=== PATIENT | female | born 1985 | race Caucasian/White ===

== ENCOUNTER 2017-01-08 05:43 | Inpatient (IN) | payer OTHER ==
--- NOTE | 2017-01-08 09:29 | ED NURSING NOTES ---
Clinical Report - Nurses Located Within [facility] [address] [place] [address] 01/08/2017 5:44 [id number] Triage time 05:48 Jan 08 2017. Acuity: LEVEL 3. --05:52 Marely Mendoza R.N. 05:48 01/08/17. BP: 106/52. HR: 91. RR: 18. O2 saturation: 99%. Temp: 99.7 F. Pain level now: 05/08. --05:52 Marely Mendoza R.N. JESUS COMA SCORE: [place] Coma Scale: 15- eyes open spontaneously (4); best verbal response- oriented x 4 (5); best motor response- obeys commands (6). --05:52 Marely Mendoza R.N. Chief Complaint: (Shaking, feels off. 5 day post , s/p vaginal delivery of twins. noticed increased vag bleeding with associated back pain and pain in right posterior chest). late entry - 05:52 01/08/17. --08:57 Terry Plunkett R.N. Weight: 74.3 kg. Height/Length: 61 inches. BMI: 31. --05:48 Marely Mendoza R.N. Medications Vitamins. --05:49 Marely Mendoza R.N. Medication/allergy information source: the patient. --05:52 Marely Mendoza R.N. Allergies No Known Drug Allergy. --05:49 Marely Mendoza R.N. History Arrived by private vehicle. Historian: patient. Accompanied by family. This started today. ( Shaking, feels off. 5 day post , s/p vaginal delivery of twins. noticed increased vag bleeding with associated back pain and pain in right posterior chest). She has had fever and difficulty breathing. Reports muscle aches. No weakness, cough or skin rash. 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 PAST MEDICAL HX: Denies current : 5 days post . SOCIAL HX: Never smoker. No alcohol use or drug use. No infectious disease exposure. ABUSE ASSESSMENT: No report of abuse. SELF HARM ASSESSMENT: A self harm assessment was performed. The patient answered "no" to the question "Have you recently felt down, depressed, or hopeless?", "Have you noticed less interest or pleasure in doing things?", "Do you have thoughts of harming or killing yourself?", "Are you here because you tried to hurt yourself?", "Have you ever tried to hurt yourself before today?", "Have you recently had thoughts about harming or killing others?" and "Do you have any dangerous items in your possession?". NUTRITIONAL RISK ASSESSMENT: The nutritional risk assessment revealed no deficiencies. FUNCTIONAL ASSESSMENT: Functional assessment: no impairments noted. LEARNING NEEDS ASSESSMENT: The learning needs assessment revealed no barriers. SKIN INTEGRITY ASSESSMENT: Skin integrity risk assessment completed. No skin integrity risk identified. --05:52 Marely Mendoza R.N. PROBLEMS: Anemia. --05:50 Marely Mendoza R.N. ADDITIONAL SURGERIES: Breast Reductiion. Dilatation & Curettage. --05:50 Marely Mendoza R.N. PHYSICAL ASSESSMENT 05:53 01/08/17. GENERAL / NEURO / PSYCH: Alert. Oriented X 4. HEENT: Pupils equal, round and reactive to light. Mucous membranes are pink. RESPIRATORY: Respirations not labored. CVS: Pulses within normal limits. SKIN: Skin intact. Skin is warm and dry. Normal skin turgor. --05:53 Marely Mendoza R.N. 06:00 01/08/17. GI / : ( post vaginal bleeding). Abdominal distention (soft, post ). No tenderness. --06:00 Marely Mendoza R.N. NURSING PROGRESS NOTES 05:54 01/08/17. The initial plan of care for this patient includes an assessment with efforts to address the patient's anxiety; the presence of pain; impairment of the gastrointestinal and genitourinary system; hydration needs. This plan of care was discussed with the patient and spouse. Patient gowned. Reassurance given. Patient identifiers checked. Call light placed in reach. Side rails up x 2. Bed placed in lowest position. Brakes of bed on. Patient ready for evaluation. --05:54 Marely Mendoza R.N. 05:57 01/08/2017 Site #1 started via IV in the left antecubital space with an 20g angiocath, with aseptic technique and good blood return; one attempt. Blood drawn: rainbow set. Labeled in the presence of the patient and sent to the lab. Saline lock flushed with 10 mL saline. --05:57 Marely Mendoza R.N. 06:07 01/08/2017 Site #1 relocated to the right with an 20g angiocath, with aseptic technique and good blood return; one attempt. Saline lock flushed with 10 mL saline (correction to previous entry). --06:07 Marely Mendoza R.N. 06:40 01/08/2017 Started bag #1 1000 mL IV Fluids IV NS (Saline); at 2000 mL/hr over 30 minute(s) via site #1. Allergies verified and confirmed 5 rights. IV patency established. IV site checked: no pain, redness, or swelling. IV flushed thoroughly pre- and post-medication administration. --06:46 Marely Mendoza R.N. 06:41 01/08/2017 Started 2 gm of Rocephin (CefTRIAXone Sodium) IVPB in bag #1 50 mL; at 100 mL/hr over 30 minute(s) via site #1; Allergies verified and confirmed 5 rights. IV patency established. IV site checked: no pain, redness, or swelling. IV flushed thoroughly pre- and post-medication administration. --06:50 Marely Mendoza R.N. 07:09 01/08/17. Care transferred and report given (to EDWARD Stewart). --07:09 Marely Mendoza R.N. 07:31 01/08/2017 Zofran (Ondansetron HCl) IVP 4 mg given over 2 minute(s) via site #1. Allergies verified and confirmed 5 rights. --07:36 Margaret Montana R.N. 07:33 01/08/2017 Dilaudid (HYDROmorphone HCl PF) IVP 0.5 mg given over 1 minute(s) via site #1. Allergies verified, confirmed 5 rights and sedative warning given to the patient. --07:36 Margaret Montana R.N. 07:35 01/08/17. BP: 123/66. HR: 74. RR: 19. O2 saturation: 98%. Temp: 101.9 F (oral). Pain level now: 06/07. --07:41 Margaret Montana R.N. 08:07 01/08/17. BP: 123/66. HR: 73. RR: 16. O2 saturation: 97%. Temp: 102.5 F. Pain level now: 0. --08:10 Terry Plunkett R.N. 08:10 01/08/17. Pulse oximeter and NIBP monitor placed on patient; monitor alarms on. Head of bed elevated. Reassurance given. Call light placed in reach. Side rails up x 1. Bed placed in lowest position. Brakes of bed on. --08:10 Terry Plunkett R.N. 08:18 01/08/2017 Tylenol (Acetaminophen) PO Tablets 975 mg given. Allergies verified and confirmed 5 rights. --08:18 Terry Plunkett R.N. 08:54 01/08/2017 IV Fluids IV NS Bag Change: bag #1. Total amount infused: 1000. STARTED bag #2 (1000 mL) at 1000 mL/hr. Confirmed 5 rights. IV patency established. IV site checked: no pain, redness, or swelling. IV flushed thoroughly. --08:54 Terry Plunkett R.N. 08:55 01/08/17. ( Pt took 240ml po fluids.). --08:55 Terry Plunkett R.N. 09:28 01/08/17. Temp: 101.3 F (oral). --09:30 Terry Plunkett R.N. 09:20. Head of bed elevated. Reassurance given. Reassessment after fluids administered and medication administered. Overall patient status is improved. Call light placed in reach. Side rails up x 1. Bed placed in lowest position. Brakes of bed on. ( Pt up to BR, voiding without difficulty. Pt requesting food, breakfast tray ordered. IVF infusing.). Patient waiting for (Eval by OB doctor). --09:30 Terry Plunkett R.N. 09:20 01/08/2017 Tylenol PO Response: no adverse reaction symptoms have improved. ED physician notified (Temp down to 101.3). --09:31 Terry Plunkett R.N. 10:13 01/08/17. BP: 100/51. HR: 70. RR: 16. O2 saturation: 97% on room air. Temp: 99.2 F (oral). Pain level now: 0/10. --10:14 Terry Plunkett R.N. 10:00 01/08/2017 IV Fluids IV NS Discontinued: bag #2 completed. Total amount infused: 1000 mL. IV patency established. IV site checked: no pain, redness, or swelling. IV flushed thoroughly. --10:16 Terry Plunkett R.N. 10:14 01/08/17. ( Pt ate her breakfast. No c/o now.). --10:14 Terry Plunkett R.N. DISPOSITION / DISCHARGE 10:13 01/08/2017 Site #[address] upon admission; patent, no pain and no signs of infection or infiltration. Flushed with 10 mL saline; flushes easily. --10:43 Terry Plunkett R.N. 10:41 01/08/17. Departure time: 1030. Condition at departure: improved and stable. Disposition: observation (OB). Transported via stretcher by transport team with IV. --10:44 Terry Plunkett R.N. 10:13 01/08/17. BP: 100/51. HR: 70. RR: 16. O2 saturation: 97% on room air. Temp: 99.5 F (oral). Pain level now: 0/10. --10:44 Terry Plunkett R.N. 10:49 01/08/17. Report was given via a phone call. Report included patient's care, treatment, medications, reviewed medication reconcilliation, and condition (including any recent changes or anticipated changes). All questions were answered. Report was acknowledged. (Emma Bowman RN). --10:49 Terry Plunkett R.N. Locked/Released at 01/21/2017 8:58 by Terry Plnukett R.N.
--- NOTE | 2017-01-08 09:29 | ED CLINICAL REPORT ---
Clinical Report - Physicians/Mid Levels [facility] [address] [place] [address] 01/08/2017 5:44 Patient: VIRI JUAREZ Time Seen: 06:07 Jan 08 2017. Arrived- By private vehicle. Historian- patient. CPT: ER phys charges level 5 (#[id number]). HISTORY OF PRESENT ILLNESS Chief Complaint: FEVER and CHILLS Post- 5 days and does not feel well. This started about 3 days [employer]ARLAND [employer] and is still present (worse today when woke up with chills and rigors.). At its maximum, severity described as moderate. When seen in the E.D., severity described as moderate. The patient has had weakness. Similar symptoms previously: None. Recent medical care: The patient was seen recently at another facility and hospitalized. ( Delivered twins 5 days ago). REVIEW OF SYSTEMS The patient has had fever, mild abdominal pain. The pain is described as located in the suprapubic region, chills and weakness. No sore throat or throat, sinus drainage, nasal congestion or cough. No difficulty breathing, chest pain, nausea, vomiting or diarrhea. No black stools, bloody stools, difficulty with urination, skin rash or blackouts. No easy bruising. The patient has had moderate back pain (right flank). No difficulty with ambulation. All systems otherwise negative, except as recorded above. PAST HISTORY Vaginal delivery of twins 5 days ago. Anemia. Breast Reductiion. Dilatation & Curettage. Medications: Vitamins. Allergies: No Known Drug Allergy. SOCIAL HISTORY Never smoker. No alcohol use or drug use. ADDITIONAL NOTES The nursing notes have been reviewed. PHYSICAL EXAM Vital Signs: 01/08/2017 05:48 BP: 106/52. HR: 91. RR: 18. O2 saturation: 99%. Temp: 99.7 F. Pain level now: 10. Appearance: Alert. Patient in moderate distress. Eyes: Eyes normal inspection. ENT: Dry mucous membranes present. Pharynx normal. Neck: Normal inspection. No meningeal signs. CVS: Normal heart rate and rhythm. Heart sounds normal. Pulses normal. Respiratory: No respiratory distress. Breath sounds normal. Chest nontender. Abdomen: Soft. Mild tenderness in the lower abdomen. (enlarged uterus.). Back: Normal inspection. Moderate CVA tenderness on the right. Skin: Skin warm. Normal skin color. No rash. Extremities: Extremities exhibit normal ROM. No lower extremity edema. Neuro: Oriented X 3. No motor deficit. No sensory deficit. LABS, X-RAYS, AND EKG Laboratory Tests: UA-Culture if indicated: (BENITO: 01/08/2017 06:37) ( MsgRcvd 01/08/2017 08:36) Final results Test Result Flag Units (Reference) URINE COLOR YELLOW URINE APPEARANCE CLEAR URINE GLUCOSE NEGATIVE (NEGATIVE) URINE BILIRUBIN NEGATIVE (NEGATIVE) URINE KETONE NEGATIVE (NEGATIVE) URINE SPECIFIC GRAVITY 1.015 (1.010-1.030) URINE PH 7.0 (5.0-8.0) URINE PROTEIN NEGATIVE (NEGATIVE) URINE UROBILINOGEN 0.2 EU/dL (0.2-1.0) URINE NITRITE NEGATIVE (NEGATIVE) URINE BLOOD 3+ (NEGATIVE) URINE LEUK ESTERASE POSITIVE (NEGATIVE) URINE RBC 10-25 rbc/hpf (0-1) URINE WBC 10-15 wbc/hpf (0-1) URINE EPITHELIAL CELLS 1-3 EPI/hpf (0-5) URINE BACTERIA MODERATE (2+ TO 3+) (NONE SEEN) URINE COMMENT CULTURE INDICATED URINE CULTURES ARE SET-UP BASED ON THE FOLLOWING CRITERIA:POSITIVE NITRITEPOSITIVE LEUKOCYTE ESTERASEGREATER THAN 10 WHITE BLOOD CELLSMODERATE (2+) OR GREATER BACTERIA CBC w Diff: (BENITO: 01/08/2017 05:55) ( MsgRcvd 01/08/2017 06:11) Final results Test Result Flag Units (Reference) WHITE BLOOD COUNT 11.2 K/uL (4.5-11.5) RED BLOOD COUNT 4.23 M/uL (4.00-5.20) HEMOGLOBIN 13.5 gm/dL (12.0-16.0) HEMATOCRIT 40.5 % (36.0-46.0) MEAN CELL VOLUME 96 fL (80-100) MEAN CORPUSCULAR HGB 32 pg (26-34) MEAN CORPUSCULAR HGB CONC 33 g/dL (31-37) RED CELL DISTRIBUTION WIDTH 14.9 H % (11.6-14.8) PLATELET COUNT 290 K/uL (150-400) NEUTROPHIL % 92.5 H % (50-75) LYMPH % 6.7 L % (25-40) MONO % 0.2 L % (3-14) EOSINOPHIL % 0.3 % (0-4) BASOPHIL % 0.3 % (0-2) PT with INR: (BENITO: 01/08/2017 05:55) ( [facility] [place] 01/08/2017 06:22) Final results Test Result Flag Units (Reference) INR 0.9 (0.8-1.2) Low Intensity Therapy: INR 1.5-2.0 PT range 18.5-23.1Mod.Intensity Therapy: INR 2.0-3.0 PT range 23.1-31.5High Intensity Therapy: INR 2.5-3.5 PT range 27.4-35.5High Intensity Therapy 2: INR 3.0-4.0 PT range 31.5-39.3 D-DIMER QUANTITATIVE 1.88 H ug/mLFEU (0.27-0.52) The primary value of this quantitative assay relates toits negative predictive value (i.e. exclusion) of pulmonaryembolism/deep vein thrombosis/DIC.Elevated levels of d-dimer may also occur with:, age, cancer, inflammation, liver disease,post-op, infection, hematoma, coronary disease, peripheralarteriopathy, bleeding disorders and thrombolytic treatment.Results should be correlated with other clinical andradiological data.Testing Methodology: Latex Immunoassay Lactate, Serum: (BENITO: 01/08/2017 07:10) ( [facility] [place] 01/08/2017 07:49) Final results Test Result Flag Units (Reference) LACTIC ACID 1.0 mmol/L (0.4-2.0) [id number]: (BENITO: 01/08/2017 05:55) ( [facility] [place] 01/08/2017 07:25) Final results Test Result Flag Units (Reference) PROCALCITONIN <0.5 ng/mL (0-0.5) PCT Concentration: Interpretation : Risk/option for action PCT <=0.5 ng/mL : Systemic : Low risk forinfection(sepsis): progression to severeis not likely. : systemic infection.Local bacterial : CAUTION-PCT levelsinfection is : below 0.5 ng/mL do notpossible. : exclude an infection,because localizedinfections (withoutsystemic signs) may beassociated with suchlow levels. If PCT ismeasured very earlyafter a bacterialchallenge (usually <6hours), these valuesmay still be low. Inthis case PCT shouldbe re-assessed 6-24hours later. PCT >0.5 and : Systemic infection: Moderate risk for<= 2 ng/mL : (sepsis) is : progression to severepossible, but : systemic infection.other conditions : The patient should beare known to : closely monitoredelevate PCT. : both clinically andby re-assessing PCTwithin 6-24 hours. PCT > 2 ng/mL : Systemic infection: High risk for(sepsis) is likely: progression to severeunless other : systemic infection.causes are known. : PCT >= 10 ng/mL : Important systemic: High likelihood ofinflammatory : severe sepsis orresponse, almost : septic shock.exclusively due to:severe bacterial :sepsis or septic :shock. : CMP: (BENITO: 01/08/2017 05:55) ( MsgRcvd 01/08/2017 06:25) Final results Test Result Flag Units (Reference) GLUCOSE 85 mg/dL (70-110) BUN 13 mg/dL (7-18) CREATININE 0.7 mg/dL (0.6-1.3) Estimated GFR >60 mL/min Estimated GFR- >60 mL/min Note: Persistent reduction over 3 months in eGFR<60 mL/min/1.73 m2 defines CKD. Patients with eGFR values>=60 mL/min/1.73 m2 may also have CKD if evidence ofpersistent proteinuria. Additional information may be foundat www.kidney.org. SODIUM 141 mmol/L (136-145) POTASSIUM 4.1 mmol/L (3.5-5.1) CHLORIDE 106 mmol/L (98-107) CARBON DIOXIDE 23 mmol/L (21-32) CALCIUM 8.9 mg/dL (8.5-10.1) TOTAL PROTEIN 6.7 g/dL (6.4-8.2) ALBUMIN 2.6 L g/dL (3.3-5.0) BILIRUBIN, TOTAL 0.5 mg/dL (0.0-1.0) ALKALINE PHOSPHATASE 187 H U/L (46-116) AST (SGOT) 77 H U/L (15-37) ALT (SGPT) 71 U/L (12-78) . PROGRESS AND PROCEDURES Course of Care: IV NS Dilaudid 0.5 mg IV Zofran 4 mg IV BC times 1 Rocephin 2g IV Symptoms better. Discussed case with on-call health care provider, (Victor Manuel). Reviewed test results. Agreed upon treatment plan. Health care provider will see patient in ED. Patient/family counseled. Disposition orders written. Disposition: Admitted to Acute Care. CLINICAL IMPRESSION Acute pyelonephritis Rule out endometritis. (Electronically signed by Segundo Leger MD 01/09/2017 9:49)
--- NOTE | 2017-01-08 09:29 | ED CLINICAL REPORT ---
Clinical Report - Physicians/Mid Levels [facility] [address] [place] [address] 01/08/2017 5:44 Patient: VIRI JUAREZ Time Seen: 06:07 Jan 08 2017. Arrived- By private vehicle. Historian- patient. CPT: ER phys charges level 5 (#[id number]). HISTORY OF PRESENT ILLNESS Chief Complaint: FEVER and CHILLS Post- 5 days and does not feel well. 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 At its maximum, severity described as moderate. When seen in the E.D., severity described as moderate. The patient has had weakness. Similar symptoms previously: None. Recent medical care: The patient was seen recently at another facility and hospitalized. ( Delivered twins 5 days ago). REVIEW OF SYSTEMS The patient has had fever, mild abdominal pain. The pain is described as located in the suprapubic region, chills and weakness. No sore throat or throat, sinus drainage, nasal congestion or cough. No difficulty breathing, chest pain, nausea, vomiting or diarrhea. No black stools, bloody stools, difficulty with urination, skin rash or blackouts. No easy bruising. The patient has had moderate back pain (right flank). No difficulty with ambulation. All systems otherwise negative, except as recorded above. PAST HISTORY Vaginal delivery of twins 5 days ago. Anemia. Breast Reductiion. Dilatation & Curettage. Medications: Vitamins. Allergies: No Known Drug Allergy. SOCIAL HISTORY Never smoker. No alcohol use or drug use. ADDITIONAL NOTES The nursing notes have been reviewed. PHYSICAL EXAM Vital Signs: 01/08/2017 05:48 BP: 106/52. HR: 91. RR: 18. O2 saturation: 99%. Temp: 99.7 F. Pain level now: 10. Appearance: Alert. Patient in moderate distress. Eyes: Eyes normal inspection. ENT: Dry mucous membranes present. Pharynx normal. Neck: Normal inspection. No meningeal signs. CVS: Normal heart rate and rhythm. Heart sounds normal. Pulses normal. Respiratory: No respiratory distress. Breath sounds normal. Chest nontender. Abdomen: Soft. Mild tenderness in the lower abdomen. (enlarged uterus.). Back: Normal inspection. Moderate CVA tenderness on the right. Skin: Skin warm. Normal skin color. No rash. Extremities: Extremities exhibit normal ROM. No lower extremity edema. Neuro: Oriented X 3. No motor deficit. No sensory deficit. LABS, X-RAYS, AND EKG Laboratory Tests: UA-Culture if indicated: (BENITO: 01/08/2017 06:37) ( MsgRcvd 01/08/2017 08:36) Final results Test Result Flag Units (Reference) URINE COLOR YELLOW URINE APPEARANCE CLEAR URINE GLUCOSE NEGATIVE (NEGATIVE) URINE BILIRUBIN NEGATIVE (NEGATIVE) URINE KETONE NEGATIVE (NEGATIVE) URINE SPECIFIC GRAVITY 1.015 (1.010-1.030) URINE PH 7.0 (5.0-8.0) URINE PROTEIN NEGATIVE (NEGATIVE) URINE UROBILINOGEN 0.2 EU/dL (0.2-1.0) URINE NITRITE NEGATIVE (NEGATIVE) URINE BLOOD 3+ (NEGATIVE) URINE LEUK ESTERASE POSITIVE (NEGATIVE) URINE RBC 10-25 rbc/hpf (0-1) URINE WBC 10-15 wbc/hpf (0-1) URINE EPITHELIAL CELLS 1-3 EPI/hpf (0-5) URINE BACTERIA MODERATE (2+ TO 3+) (NONE SEEN) URINE COMMENT CULTURE INDICATED URINE CULTURES ARE SET-UP BASED ON THE FOLLOWING CRITERIA:POSITIVE NITRITEPOSITIVE LEUKOCYTE ESTERASEGREATER THAN 10 WHITE BLOOD CELLSMODERATE (2+) OR GREATER BACTERIA CBC w Diff: (BENITO: 01/08/2017 05:55) ( MsgRcvd 01/08/2017 06:11) Final results Test Result Flag Units (Reference) WHITE BLOOD COUNT 11.2 K/uL (4.5-11.5) RED BLOOD COUNT 4.23 M/uL (4.00-5.20) HEMOGLOBIN 13.5 gm/dL (12.0-16.0) HEMATOCRIT 40.5 % (36.0-46.0) MEAN CELL VOLUME 96 fL (80-100) MEAN CORPUSCULAR HGB 32 pg (26-34) MEAN CORPUSCULAR HGB CONC 33 g/dL (31-37) RED CELL DISTRIBUTION WIDTH 14.9 H % (11.6-14.8) PLATELET COUNT 290 K/uL (150-400) NEUTROPHIL % 92.5 H % (50-75) LYMPH % 6.7 L % (25-40) MONO % 0.2 L % (3-14) EOSINOPHIL % 0.3 % (0-4) BASOPHIL % 0.3 % (0-2) PT with INR: (BENITO: 01/08/2017 05:55) ( [facility] [place] 01/08/2017 06:22) Final results Test Result Flag Units (Reference) INR 0.9 (0.8-1.2) Low Intensity Therapy: INR 1.5-2.0 PT range 18.5-23.1Mod.Intensity Therapy: INR 2.0-3.0 PT range 23.1-31.5High Intensity Therapy: INR 2.5-3.5 PT range 27.4-35.5High Intensity Therapy 2: INR 3.0-4.0 PT range 31.5-39.3 D-DIMER QUANTITATIVE 1.88 H ug/mLFEU (0.27-0.52) The primary value of this quantitative assay relates toits negative predictive value (i.e. exclusion) of pulmonaryembolism/deep vein thrombosis/DIC.Elevated levels of d-dimer may also occur with:, age, cancer, inflammation, liver disease,post-op, infection, hematoma, coronary disease, peripheralarteriopathy, bleeding disorders and thrombolytic treatment.Results should be correlated with other clinical andradiological data.Testing Methodology: Latex Immunoassay Lactate, Serum: (BENITO: 01/08/2017 07:10) ( [facility] [place] 01/08/2017 07:49) Final results Test Result Flag Units (Reference) LACTIC ACID 1.0 mmol/L (0.4-2.0) [id number]: (BENITO: 01/08/2017 05:55) ( [facility] [place] 01/08/2017 07:25) Final results Test Result Flag Units (Reference) PROCALCITONIN <0.5 ng/mL (0-0.5) PCT Concentration: Interpretation : Risk/option for action PCT <=0.5 ng/mL : Systemic : Low risk forinfection(sepsis): progression to severeis not likely. : systemic infection.Local bacterial : CAUTION-PCT levelsinfection is : below 0.5 ng/mL do notpossible. : exclude an infection,because localizedinfections (withoutsystemic signs) may beassociated with suchlow levels. If PCT ismeasured very earlyafter a bacterialchallenge (usually <6hours), these valuesmay still be low. Inthis case PCT shouldbe re-assessed 6-24hours later. PCT >0.5 and : Systemic infection: Moderate risk for<= 2 ng/mL : (sepsis) is : progression to severepossible, but : systemic infection.other conditions : The patient should beare known to : closely monitoredelevate PCT. : both clinically andby re-assessing PCTwithin 6-24 hours. PCT > 2 ng/mL : Systemic infection: High risk for(sepsis) is likely: progression to severeunless other : systemic infection.causes are known. : PCT >= 10 ng/mL : Important systemic: High likelihood ofinflammatory : severe sepsis orresponse, almost : septic shock.exclusively due to:severe bacterial :sepsis or septic :shock. : CMP: (BENITO: 01/08/2017 05:55) ( MsgRcvd 01/08/2017 06:25) Final results Test Result Flag Units (Reference) GLUCOSE 85 mg/dL (70-110) BUN 13 mg/dL (7-18) CREATININE 0.7 mg/dL (0.6-1.3) Estimated GFR >60 mL/min Estimated GFR- >60 mL/min Note: Persistent reduction over 3 months in eGFR<60 mL/min/1.73 m2 defines CKD. Patients with eGFR values>=60 mL/min/1.73 m2 may also have CKD if evidence ofpersistent proteinuria. Additional information may be foundat www.kidney.org. SODIUM 141 mmol/L (136-145) POTASSIUM 4.1 mmol/L (3.5-5.1) CHLORIDE 106 mmol/L (98-107) CARBON DIOXIDE 23 mmol/L (21-32) CALCIUM 8.9 mg/dL (8.5-10.1) TOTAL PROTEIN 6.7 g/dL (6.4-8.2) ALBUMIN 2.6 L g/dL (3.3-5.0) BILIRUBIN, TOTAL 0.5 mg/dL (0.0-1.0) ALKALINE PHOSPHATASE 187 H U/L (46-116) AST (SGOT) 77 H U/L (15-37) ALT (SGPT) 71 U/L (12-78) . PROGRESS AND PROCEDURES Course of Care: IV NS Dilaudid 0.5 mg IV Zofran 4 mg IV BC times 1 Rocephin 2g IV Symptoms better. Discussed case with on-call health care provider, (Victor Manuel). Reviewed test results. Agreed upon treatment plan. Health care provider will see patient in ED. Patient/family counseled. Disposition orders written. Disposition: Admitted to Acute Care. CLINICAL IMPRESSION Acute pyelonephritis Rule out endometritis. (Electronically signed by Segundo Leger MD 01/09/2017 9:49)
--- NOTE | 2017-01-08 09:29 | ED ORDER SUMMARY ---
..... Patient: VIRI JUAREZ OrderSheet [facility] VisitID: [id number] [address] [place] [address] 31y, F Registration Date/Time: 01/08/2017 ORDER SHEET Weight: 74.3 kg Allergies: No Known Drug Allergy GENERAL ORDERS: CBC w Diff Urgent (05:54 01/08/2017 EInderbitzen R.N. verbal order read back to Mercedes GANN) (Ack 5:58 CHagerty [facility] Loan Service Officer) (6:00 CHagerty ER Loan Service Officer) CMP Urgent (:01/08/2017 EInderbitzen R.N. verbal order read back to Mercedes GANN) (Ack 5:58 CHagerty [facility] Loan Service Officer) (6:00 CHagerty ER Loan Service Officer) UA-Culture if indicated Urgent (:01/08/2017 EInderbitzen R.N. verbal order read back to Mercedes GANN) (Ack 5:58 CHagerty ER Loan Service Officer) (Sent 6:28 EInderbitzen R.N.) (6:45 EInderbitzen R.N.) PT with INR Urgent (06:04 01/08/2017 EInderbitzen R.N. verbal order read back to Mercedes GANN) (Ack 6:06 CHagerty [facility] Loan Service Officer) (6:28 EInderbitzen R.N.) D-Dimer Urgent (06:04 01/08/2017 EInderbitzen R.N. verbal order read back to Mercedes GANN) (Ack 6:06 CHagerty [facility] Loan Service Officer) (6:28 EInderbitzen R.N.) Blood Culture (No) (N/A) Urgent (06:30 01/08/2017 Mercedes GANN) (Ack 6:37 CHagerty ER Loan Service Officer) (8:18 JSimbeck R.N.) PCT (Procalcitonin) Urgent (06:30 01/08/2017 Mercedes GANN) (6:32 CHagerty ER Loan Service Officer) Lactate, Serum Urgent (06:01/08/2017 Mercedes GANN) (Ack 6:37 CHagerty ER Loan Service Officer) (8:18 Vandana Olivre) MEDICATION ORDERS: Tylenol PO 325 mg (NOW) (08:12 01/08/2017 Vandana Oliver verbal order read back to Mercedes GANN) (8:18 Vandana Oliver) IV FLUIDS: IV NS : initial bolus 1000 mL (1000 mL/hr), then 500 mL/hr for X2 (NOW); Routine (06:30 01/08/2017 Mercedes GANN) (6:46 Guy R.N.) Rocephin IV 2 gm/50mL (NOW) (after urine and BC collected.) (06:32 01/08/2017 Mercedes GANN) (6:50 Guy Caba.N.) Dilaudid IV 0.5 mg (NOW) (07:25 01/08/2017 Mercedes GANN) (7:36 Rose R.N.) Zofran IV 4 mg (NOW) (07:25 01/08/2017 Mercedes GANN) (7:36 Rose R.N.) ORDER SHEET NOTES: [Electronically signed by Segundo Leger MD (09:49 01/09/2017)] [Electronically signed by Trery Plunkett R.N. (08:58 01/21/2017)] [Electronically locked/signed by Terry Plunkett R.N. (08:58 01/21/2017)]
--- NOTE | 2017-01-08 09:29 | ED ORDER SUMMARY ---
..... Patient: VIRI JUAREZ OrderSheet [facility] VisitID: [id number] [address] [place] [address] 31y, F Registration Date/Time: 01/08/2017 ORDER SHEET Weight: 74.3 kg Allergies: No Known Drug Allergy GENERAL ORDERS: CBC w Diff Urgent (05:54 01/08/2017 EInderbitzen R.N. verbal order read back to Mercedes GANN) (Ack 5:58 CHagerty ER Forensic Technician) (6:00 CHagerty ER Forensic Technician) CMP Urgent (:01/08/2017 EInderbitzen R.N. verbal order read back to Mercedes GANN) (Ack 5:58 CHagerty ER Forensic Technician) (6:00 CHagerty ER Forensic Technician) UA-Culture if indicated Urgent (:01/08/2017 EInderbitzen R.N. verbal order read back to Mercedes GANN) (Ack 5:58 CHagerty ER Forensic Technician) (Sent 6:28 EInderbitzen R.N.) (6:45 EInderbitzen R.N.) PT with INR Urgent (06:04 01/08/2017 EInderbitzen R.N. verbal order read back to Mercedes GANN) (Ack 6:06 CHagerty ER Forensic Technician) (6:28 EInderbitzen R.N.) D-Dimer Urgent (06:04 01/08/2017 EInderbitzen R.N. verbal order read back to Mercedes GANN) (Ack 6:06 CHagerty ER Forensic Technician) (6:28 EInderbitzen R.N.) Blood Culture (No) (N/A) Urgent (06:30 01/08/2017 Mercedes AGNN) (Ack 6:37 CHagerty ER Forensic Technician) (8:18 JSimbeck R.N.) PCT (Procalcitonin) Urgent (06:30 01/08/2017 Mercedes GANN) (6:32 CHagerty ER Forensic Technician) Lactate, Serum Urgent (06:01/08/2017 Mercedes GANN) (Ack 6:37 CHagerty ER Forensic Technician) (8:18 Vandana Oliver) MEDICATION ORDERS: Tylenol PO 325 mg (NOW) (08:12 01/08/2017 Vandana Oliver verbal order read back to Mercedes GANN) (8:18 Vandana Oliver) IV FLUIDS: IV NS : initial bolus 1000 mL (1000 mL/hr), then 500 mL/hr for X2 (NOW); Routine (06:30 01/08/2017 Mercedes GANN) (6:46 Guy R.N.) Rocephin IV 2 gm/50mL (NOW) (after urine and BC collected.) (06:32 01/08/2017 Mercedes GANN) (6:50 Guy Caba.N.) Dilaudid IV 0.5 mg (NOW) (07:25 01/08/2017 Mercedes GANN) (7:36 Rose R.N.) Zofran IV 4 mg (NOW) (07:25 01/08/2017 Mercedes GANN) (7:36 Rose R.N.) ORDER SHEET NOTES: [Electronically signed by Segundo Leger MD (09:49 01/09/2017)] [Electronically signed by Terry Plunkett R.N. (08:58 01/21/2017)] [Electronically locked/signed by Terry Plunkett R.N. (08:58 01/21/2017)]
--- NOTE | 2017-01-08 10:30 | History & Physical Report ---
Information Source Information Source: Self Reliability: Good History Chief Complaint flank pain and fever History of Present Illness Pt is a 31 year old female with no significant past medical history that is presenting with a 1 day history of flank pain, fever, and general malaise. Patient is a recent post day 5, after giving to twins. Patient gave pre term new borns. One was in the breach position, and required manipulation to be delivered but otherwise no other issues affected the . After the the patient had no immediate issues. Patient however two days prior noticed that she was having occasional twinges in her flank that would occur spontaneously. The pain got worse yesterday to the point where the patient required po analgesics. Patient that night had fevers, sweats and did not feel well. At this point it was decided that the patient should come to the hospital. Patient Patient History 1. Pyelonephritis 2. fever Social History Pt does not smoke, drink or use illicit substances. Pt lives at her own residence with her and 3 children. 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 Medications and Allergies Medications Home Meds Pre- vitamins Current Medications Sig/Clay Start time Last Medication Dose Route Stop Time Status Admin Ceftriaxone Sodium/ 50 ML DAILY 01/09 0900 AC Dextrose IV Ibuprofen 600 MG Q6H PRN 01/08 1630 AC PO Acetaminophen 650 MG Q4H PRN 01/08 1515 AC 01/08 PO 1504 Morphine Sulfate 1 MG Q6H PRN 01/08 1245 AC IV Sodium Chloride 1,000 ML ASDIRECTED 01/08 1245 AC IV Ondansetron HCl 4 MG Q4H PRN 01/08 0930 AC IV Sodium Chloride 1,000 ML ASDIRECTED 01/08 0930 AC IV Allergies Coded Allergies: NKA (01/08/17) Review of Systems Constitutional Fever, Sweats, Malaise. Denies: Chills, Weakness, Other. Eyes Denies: Pain, Vision Change, Conjunctival Inflammation, Eyelid Inflammation, Redness, Other. ENT Denies: Ear Pain, Ear Discharge, Nose Pain, Nasal Discharge, Nasal Congestion, Mouth Pain, Mouth Swelling, Throat Pain, Throat Swelling, Other. Respiratory Denies: Cough, Dry, SOB w/exertion, Wheezing, Hemoptysis, Pleuritic Pain, Sputum , Other. Cardiovascular Denies: Chest Pain, Palpitations, Orthopnea, PND, Edema, Light-headedness, Other. Gastrointestinal Nausea. Denies: Vomiting, Abdominal Pain, Diarrhea, Constipation, Melena, Hematochezia, Other. Genitourinary Other (flank pain ). Musculoskeletal Denies: Neck Pain, Shoulder Pain, Arm Pain, Back Pain, Hand Pain, Leg Pain, Foot Pain, Other. Skin Denies: Rash, Lesions, Jaundice, Bruising, Other. Physical Exam Vital Signs / I&Os Vital Signs Date Time Temp Pulse Resp B/P Pulse O2 O2 Flow FiO2 Ox Delivery Rate 01/08 1217 99.1 68 113/58 General Appearance Alert, Oriented X3, No acute distress HEENT Normal exam, Atraumatic, Moist mucous membranes Lungs Normal exam, Clear to auscultation Neck Supple, No JVD Cardiovascular Regular rate and rhythm, Normal S1 and S2, No murmurs, gallops, rubs Abdomen Soft, No tenderness, No guarding, - recent post uterus , - flank pain present R>>L Pelvic Normal external genitalia Extremities No clubbing, No edema Skin No Rashes LAB Results Laboratory Tests 01/08 01/08 0555 0555 Chemistry Plasma Sodium (136 - 145 mmol/L) 141 Plasma Potassium (3.5 - 5.1 mmol/L) 4.1 Plasma Chloride (98 - 107 mmol/L) 106 CO2 (Enzymatic) (21 - 32 mmol/L) 23 BUN (7 - 18 mg/dL) 13 Creatinine (0.6 - 1.3 mg/dL) 0.7 Est GFR ( Amer) (mL/min) >60 Est GFR (Non-Af Amer) (mL/min) >60 Glucose (70 - 110 mg/dL) 85 Plasma Calcium (8.5 - 10.1 mg/dL) 8.9 Total Bilirubin (0.0 - 1.0 mg/dL) 0.5 AST (15 - 37 U/L) 77 ALT (12 - 78 U/L) 71 Alkaline Phosphatase (46 - 116 U/L) 187 Total Protein (6.4 - 8.2 g/dL) 6.7 Albumin (3.3 - 5.0 g/dL) 2.6 Procalcitonin (0 - 0.5 ng/mL) <0.5 Coagulation INR (0.8 - 1.2) 0.9 D-Dimer, Quantitative (0.27 - 0.52 ug/mLFEU) 1.88 Hematology WBC (4.5 - 11.5 K/uL) 11.2 RBC (4.00 - 5.20 M/uL) 4.23 Hgb (12.0 - 16.0 gm/dL) 13.5 Hct (36.0 - 46.0 %) 40.5 MCV (80 - 100 fL) 96 MCH (26 - 34 pg) 32 RDW (11.6 - 14.8 %) 14.9 Neut % (Auto) (50 - 75 %) 92.5 Lymph % (Auto) (25 - 40 %) 6.7 [place] % (Auto) (3 - 14 %) 0.2 Eos % (Auto) (0 - 4 %) 0.3 Baso % (Auto) (0 - 2 %) 0.3 Plt Count, EDTA (150 - 400 K/uL) 290 PUBS MCHC (31 - 37 g/dL) 33 01/08 01/08 01/08 0637 0710 0710 Chemistry Lactic Acid (0.4 - 2.0 mmol/L) 1.0 Lipase (73 - 393 U/L) 146 Urines Urine Color YELLOW Urine Appearance CLEAR Urine pH (5.0 - 8.0) 7.0 Ur Specific [place] (1.010 - 1.030) 1.015 Urine Protein (NEGATIVE) NEGATIVE Urine Ketones (NEGATIVE) NEGATIVE Urine Blood (NEGATIVE) 3+ Urine Nitrite (NEGATIVE) NEGATIVE Urine Bilirubin (NEGATIVE) NEGATIVE Urine Urobilinogen (0.2 - 1.0 EU/dL) 0.2 Ur Leukocyte Esterase (NEGATIVE) POSITIVE Urine RBC (0 - 1 rbc/hpf) 10-25 Urine WBC (0 - 1 wbc/hpf) 10-15 Ur Epithelial Cells (0 - 5 EPI/hpf) 1-3 Urine Bacteria (NONE SEEN) MODERATE (2+ TO 3+) Urine Glucose (NEGATIVE) NEGATIVE Urine Comment CULTURE INDICATED Microbiology Date/Time Procedure - Status Source Growth 01/08 710 Blood Culture - RECD BLOOD 01/08 637 Urine Culture - RECD URINE CC Assessment and Plan Problem List 1. Pyelonephritis Plan - Pt has had 2 days of fever and malaise which evolved to flank pain - Pts exam is equivocal for pyelonephritis - will begin treatment with ceftriaxone - will obtain daily labs - urine sent for culture - will trend labs 2. fever Plan - pts fever most likely secondary to pyelonephritis - will have mobile security architect come see for possible endometrial infection - will follow up
[2017-01-08 12:17] VITALS: BP 113/58
--- NOTE | 2017-01-08 14:44 | NUR ---
Pt admitted to room 323 for daily antibiotics and IV fluid rx for pyelonephritis. She is 5 days post delivering twins at [facility]. They were 36 week gestation. She is currently pumping and attempting . She has had a breast reduction 15 years ago, and was not successful in her 2 year old - "not enough breast milk". She has carpal tunnel discomfort in her rt arm, and sciatic issues down both legs from her . She currently has a firm fundus at the umbilicus, somewhat tender to palpation. Her vag drainage is light, she is doing her own pericare. She comes from the ED with an IV in place, NS hung at 100 cc / hr as ordered. She is drinking fluids and eating a general diet. Her temp was 99.2, and her rt flank pain is intermittent, but tolerable. She is c/o headache right now, and requesting tylenol. Order received from Dr Nova. Dr Gil planning to consult and visit pt this afternoon. Breast pump taken to her room for her use. ordered.
[2017-01-08 16:00] VITALS: BP 105/53
[2017-01-08 20:00] VITALS: BP 104/53
--- NOTE | 2017-01-08 20:11 | NUR ---
Pt. sitting up in bed. Her pain level is at level 1 right now but she states that the Right flank pain flares up when she least expects it. Pt. ambulatory in room and to bathroom w/o difficulty. No distress noted. Will continue to monitor pt. status.
[2017-01-08 23:56] VITALS: BP 106/65
[2017-01-09 04:12] VITALS: BP 110/74
--- NOTE | 2017-01-09 08:00 | NUR ---
Pt Voided to BR. 400ml of Cloudy urine with heavy sediment in the urine noted. Dr Nova will be reported noted.
[2017-01-09 08:05] VITALS: BP 116/69
--- NOTE | 2017-01-09 08:20 | NUR ---
Dr Avtar Wallace made round this AM & No new orders entered noted.
--- NOTE | 2017-01-09 09:00 | NUR ---
Pt, Up & ambulating around unit indep. & tolerating well. Afebile. Skin warm & dry to touch. No S/SXs any acute distress noted. Denies all pain in this AM. Scanty amount of post Vaginal flow & Pt changing pad self noted. Pt had general diet for breakfast this, tolerated well noted. Has a good appetites. Pt continuously pumping breastmilk & stores them in the refrigerator for her twins & doing really well with that & produces a lot of breastmilk noted.
[2017-01-09 11:55] VITALS: BP 115/70
[2017-01-09 16:10] VITALS: BP 129/57
--- NOTE | 2017-01-09 17:58 | Progress Note ---
Subjective General Pt seen and examined. Patient has been doing well without any fever spikes throughout the night. Patients pain has decreased immensely. Patient has no complaints at the moment. Constitutional Denies: Fever, Chills, Sweats, Weakness, Malaise, Other. Eyes Denies: Pain, Vision Change, Conjunctival Inflammation, Eyelid Inflammation, Redness, Other. ENT Denies: Ear Pain, Ear Discharge, Nose Pain, Nasal Discharge, Nasal Congestion, Mouth Pain, Mouth Swelling, Throat Pain, Throat Swelling, Other. Respiratory Denies: Cough, Dry, SOB w/exertion, Wheezing, Hemoptysis, Pleuritic Pain, Sputum , Other. Cardiovascular Denies: Chest Pain, Palpitations, Orthopnea, PND, Edema, Light-headedness, Other. Gastrointestinal Constipation. Denies: Nausea, Vomiting, Abdominal Pain, Diarrhea, Melena, Hematochezia, Other. Genitourinary Denies: Dysuria, Frequency, Incontinence, Hematuria, Retention, Other. Musculoskeletal Denies: Neck Pain, Shoulder Pain, Arm Pain, Back Pain, Hand Pain, Leg Pain, Foot Pain, Other. Skin Denies: Rash, Lesions, Jaundice, Bruising, Other. Neurological Denies: Weakness, Numbness, Incoordination, Change in speech, Confusion, Seizures, Other. Physical Exam Vital Signs / I&Os Vital Signs Date Time Temp Pulse Resp B/P Pulse O2 O2 Flow FiO2 Ox Delivery Rate 01/09 1610 98.2 51 18 129/57 01/09 1155 98.2 50 18 115/70 01/09 0805 98.2 49 18 116/69 01/09 0800 Room Air 01/09 0413 98.8 01/09 0412 47 18 110/74 97 Room Air 01/08 2356 98.2 51 20 106/65 01/08 2348 Room Air 01/08 2230 98.2 01/08 2000 98.8 64 24 104/53 I&O 01/08 0800 01/08 1600 01/09 0000 Intake Total 500 947 Output Total 300 2450 Balance 200 -1503 General Appearance Alert, Oriented X3, No acute distress HEENT Atraumatic, PERRLA, Moist mucous membranes Lungs Normal exam Cardiovascular Regular rate and rhythm, Normal S1 and S2, No murmurs, gallops, rubs Abdomen Soft, No tenderness, No guarding Extremities No edema, Normal pulses, No tenderness Skin No Breakdown, No Significant Lesions Neurological Normal exam LAB Results Laboratory Tests 01/09 0505 Chemistry Plasma Sodium (136 - 145 mmol/L) 142 Plasma Potassium (3.5 - 5.1 mmol/L) 3.8 Plasma Chloride (98 - 107 mmol/L) 109 CO2 (Enzymatic) (21 - 32 mmol/L) 22 BUN (7 - 18 mg/dL) 10 Creatinine (0.6 - 1.3 mg/dL) 0.7 Est GFR ( Amer) (mL/min) >60 Est GFR (Non-Af Amer) (mL/min) >60 Glucose (70 - 110 mg/dL) 91 Plasma Calcium (8.5 - 10.1 mg/dL) 7.7 Plasma Magnesium (1.8 - 2.4 mg/dL) 1.7 Hematology WBC (4.5 - 11.5 K/uL) 7.9 RBC (4.00 - 5.20 M/uL) 3.43 Hgb (12.0 - 16.0 gm/dL) 11.2 Hct (36.0 - 46.0 %) 33.1 MCV (80 - 100 fL) 96 MCH (26 - 34 pg) 33 RDW (11.6 - 14.8 %) 15.0 Neut % (Auto) (50 - 75 %) 71.7 Lymph % (Auto) (25 - 40 %) 17.5 [place] % (Auto) (3 - 14 %) 8.8 Eos % (Auto) (0 - 4 %) 1.6 Baso % (Auto) (0 - 2 %) 0.4 Plt Count, EDTA (150 - 400 K/uL) 219 PUBS MCHC (31 - 37 g/dL) 34 Assessment and Plan Problem List 1. Pyelonephritis Plan - Will continue with ceftriaxone - will obtain serial labs - if patient continues to do well will consider discharge 01/10
--- NOTE | 2017-01-09 18:00 | NUR ---
PATIENT VISITING IN ROOM WITH FAMILY. SITTING UP IN BED. DENIES ANY PAIN AT THIS TIME. REPORTS HER PAIN IS WELL CONTROLLED WITH ALTERNATING TYLENOL AND IBUPROFEN. CALL LIGHT WITHIN REACH AND WILL CALL WITH CONCERNS.
[2017-01-09 20:04] VITALS: BP 128/81
--- NOTE | 2017-01-09 21:31 | NUR ---
PATIENT GOING TO SLEEP FOR THE NIGHT. MEDICATED WITH TYLENOL FOR PAIN AND SCD'S APPLIED.
[2017-01-09 23:41] VITALS: BP 121/78
[2017-01-10 02:08] VITALS: BP 126/78
--- NOTE | 2017-01-10 08:00 | NUR ---
Pt voided to BR, 600Ml of Clear Straw color urine. No sediments noted.
[2017-01-10 08:05] VITALS: BP 133/82
--- NOTE | 2017-01-10 09:30 | NUR ---
Dr Nova is here & made round. New orders for DC pt home this AM noted.
--- NOTE | 2017-01-10 10:25 | Provider's Discharge Care Plan ---
Problem, Goal, Plan Problem List 1. Pyelonephritis Instructions: Take meds as directed, - take antibiotics as prescribed
--- NOTE | 2017-01-10 10:25 | Provider's Discharge Care Plan ---
Problem, Goal, Plan Problem List 1. Pyelonephritis Instructions: Take meds as directed, - take antibiotics as prescribed
[2017-01-10] MEDS ORDERED: CEFUROXIME AXE500 MG PO (10:29)
--- NOTE | 2017-01-10 10:30 | Discharge Summary ---
Discharge Summary Report Admit Date 01/08/17 Discharge Date 01/10/17 Admission Diagnosis pyelonephritis Discharge Diagnosis Urinary tract infection Brief History Pt is a 31 year old female with no significant past medical history that is presenting with a 1 day history of flank pain, fever, and general malaise. Patient is a recent post day 5, after giving to twins. Patient gave pre term new borns. One was in the breach position, and required manipulation to be delivered but otherwise no other issues affected the . After the the patient had no immediate issues. Patient however two days prior noticed that she was having occasional twinges in her flank that would occur spontaneously. The pain got worse yesterday to the point where the patient required po analgesics. Patient that night had fevers, sweats and did not feel well. At this point it was decided that the patient should come to the hospital. Hospital Course Patient was admitted for what looked to be urinary tract infection with possible pyelonephritis. Patient on admission had questionable cva tenderness which resolved within the first night of the patients stay. Patient was treated with IV antibiotics with good results and no evidence of repeat fever. Patients pain improved and it was decided that the patient could be discharged with continuatin of oral antibiotics at home. Patient will follow up with her obgyn within the week. General Appearance Alert, Oriented X3, No acute distress HEENT PERRLA, EOMI, Mucous membran moist/pink Lungs Normal air movement Cardiovascular Normal S1, Normal S2, No murmurs, Gallops Abdomen Soft, No tenderness, No hepatospenomegaly Skin No Breakdown, No Significant Lesions Discharge Instructions/Meds - continue with oral antibiotics at home - follow up wth your obgyn
--- NOTE | 2017-01-10 11:30 | NUR ---
Pt was given DC instructions, Given a prescriptions for Cefluroxime Axetil 500mg/PO, BID. X5days for Pyelonephritis. Given F/U Infos. Pt was indicated understood. Pt dc'd home with her Mom accompanied by & Hospital escort via W/ chair was done noted.
--- NOTE | 2017-01-21 08:58 | ED MED RECONCILIATION SUMMARY ---
Patient: VIRI JUAREZ Medication Reconciliation Report [facility] VisitID: [id number] [address] [place] [address] 31y, F Registration Date/Time: 01/08/2017 Weight: 74.3 kg Height/Length: 61 in. BMI: 31.0 ALLERGIES: No Known Drug Allergy The patient's Home Medications are listed below: THE FOLLOWING MEDICATIONS NEED TO BE RECONCILED: Vitamins The source(s) of the original Home Medication information: patient The following Medications were given to the patient in the Emergency Department: IV NS IV Fluids bolus 0, then 2000 mL/hr, administered: 01/08/2017 6:40:00 AM Rocephin [IVPB] IVPB bolus 0, then 2 gm 100 mL/hr, administered: 01/08/2017 6:41:00 AM Zofran [IVP] IVP 4 mg, administered: 01/08/2017 7:31:00 AM Dilaudid [IVP] IVP 0.5 mg, administered: 01/08/2017 7:33:00 AM Tylenol [PO] PO 975 mg, administered: 01/08/2017 8:18:00 AM The following Medications were prescribed to the patient: None.
--- NOTE | 2017-01-21 08:58 | ED MED RECONCILIATION SUMMARY ---
Patient: VIRI JUAREZ Medication Reconciliation Report [facility] VisitID: [id number] [address] [place] [address] 31y, F Registration Date/Time: 01/08/2017 Weight: 74.3 kg Height/Length: 61 in. BMI: 31.0 ALLERGIES: No Known Drug Allergy The patient's Home Medications are listed below: THE FOLLOWING MEDICATIONS NEED TO BE RECONCILED: Vitamins The source(s) of the original Home Medication information: patient The following Medications were given to the patient in the Emergency Department: IV NS IV Fluids bolus 0, then 2000 mL/hr, administered: 01/08/2017 6:40:00 AM Rocephin [IVPB] IVPB bolus 0, then 2 gm 100 mL/hr, administered: 01/08/2017 6:41:00 AM Zofran [IVP] IVP 4 mg, administered: 01/08/2017 7:31:00 AM Dilaudid [IVP] IVP 0.5 mg, administered: 01/08/2017 7:33:00 AM Tylenol [PO] PO 975 mg, administered: 01/08/2017 8:18:00 AM The following Medications were prescribed to the patient: None.
--- NOTE | 2017-01-21 08:58 | ED MAR SUMMARY ---
..... Medication Administration Record [facility] [address] [place] [address] Patient: VIRI JUAREZ Visit ID: [id number] 31y, F Weight: 74.3 kg Height/Length: 61 in BMI: 31 ALLERGIES: No Known Drug Allergy Start 06:40 01/08/2017 Marely Mendoza R.N., Stop 10:00 01/08/2017 Terry Plunkett R.N. Medication Administered: IV NS (SALINE), Dose: IV Fluids over 30 minute(s), Rate: 2000 mL/hr, Dispensed: 1000 mL bag, Site: #1 right. Medication Ordered: IV NS : initial bolus 1000 mL (1000 mL/hr), then 500 mL/hr for X2 (NOW); Routine. Start 06:41 01/08/2017 Marely Mendoza R.N. Medication Administered: ROCEPHIN [IVPB] (CEFTRIAXONE SODIUM), Dose: 2 gm IVPB over 30 minute(s), Rate: 100 mL/hr, Dispensed: 50 mL bag, Site: #1 right. Medication Ordered: Rocephin IV 2 gm/50mL (NOW) (after urine and BC collected.). Given 07:31 01/08/2017 Margaret Montana R.N. Medication Administered: ZOFRAN [IVP] (ONDANSETRON HCL), Dose: 4 mg IVP over 2 minute(s), Site: #1 right. Medication Ordered: Zofran IV 4 mg (NOW). Given 07:33 01/08/2017 Margaret Montana R.N. Medication Administered: DILAUDID [IVP] (HYDROMORPHONE HCL PF), Dose: 0.5 mg IVP over 1 minute(s), Site: #1 right. Medication Ordered: Dilaudid IV 0.5 mg (NOW). Given 08:18 01/08/2017 Terry Plunkett R.N. Medication Administered: TYLENOL [PO] (ACETAMINOPHEN), Dose: 975 mg Tablets PO. Medication Ordered: Tylenol PO 325 mg (NOW).
--- NOTE | 2017-01-21 08:58 | ED DISCHARGE INSTRUCTIONS ---
Patient: VIRI JUAREZ General Instructions [facility] VisitID: [id number] [address] [place] [address] 31y, F Registration Date/Time: 01/08/2017 Acute pyelonephritis Rule out endometritis. (Electronically signed by Segundo Leger MD 01/09/2017 9:49)
--- NOTE | 2017-01-21 08:58 | ED MAR SUMMARY ---
..... Medication Administration Record [facility] [address] [place] [place] [address] Patient: VIRI JUAREZ Visit ID: [id number] 31y, F Weight: 74.3 kg Height/Length: 61 in BMI: 31 ALLERGIES: No Known Drug Allergy Start 06:40 01/08/2017 Marely Mendoza R.N., Stop 10:00 01/08/2017 Terry Plunkett R.N. Medication Administered: IV NS (SALINE), Dose: IV Fluids over 30 minute(s), Rate: 2000 mL/hr, Dispensed: 1000 mL bag, Site: #1 right. Medication Ordered: IV NS : initial bolus 1000 mL (1000 mL/hr), then 500 mL/hr for X2 (NOW); Routine. Start 06:41 01/08/2017 Marely Mendoza R.N. Medication Administered: ROCEPHIN [IVPB] (CEFTRIAXONE SODIUM), Dose: 2 gm IVPB over 30 minute(s), Rate: 100 mL/hr, Dispensed: 50 mL bag, Site: #1 right. Medication Ordered: Rocephin IV 2 gm/50mL (NOW) (after urine and BC collected.). Given 07:31 01/08/2017 Margaret Montana R.N. Medication Administered: ZOFRAN [IVP] (ONDANSETRON HCL), Dose: 4 mg IVP over 2 minute(s), Site: #1 right. Medication Ordered: Zofran IV 4 mg (NOW). Given 07:33 01/08/2017 Margaret Montana R.N. Medication Administered: DILAUDID [IVP] (HYDROMORPHONE HCL PF), Dose: 0.5 mg IVP over 1 minute(s), Site: #1 right. Medication Ordered: Dilaudid IV 0.5 mg (NOW). Given 08:18 01/08/2017 Terry Plunkett R.N. Medication Administered: TYLENOL [PO] (ACETAMINOPHEN), Dose: 975 mg Tablets PO. Medication Ordered: Tylenol PO 325 mg (NOW).
--- NOTE | 2017-01-21 08:58 | ED DISCHARGE INSTRUCTIONS ---
Patient: VIRI JUAREZ General Instructions [facility] VisitID: [id number] [address] [place] [address] 31y, F Registration Date/Time: 01/08/2017 Acute pyelonephritis Rule out endometritis. (Electronically signed by Segundo Leger MD 01/09/2017 9:49)
== END 2017-01-10 11:30 | disposition home or self-care (01) | DRG 776 ==
LOC: ED SRH 05:43 → TRANS SRH 09:43 → OB SRH 11:00
PROVIDERS: ADMIT Family Medicine
DX: O86.20 Urinary tract infection following delivery, unspecified (principal)
CPT/HCPCS: 83501; 90004; 90047; 90065; 90074; 90100; 90469; 91556; 92031; 92235; 92720; 93004; 94060; 95059